=== PATIENT | male | born 1975 ===

== ENCOUNTER 2024-06-01 08:38 | Outpatient (CLI) | payer OTHER ==
[2024-06-01 10:44] LABS: PH,URINE 5.5 (5.0-8.0); URINE APPEARANCE Clear; URINE BILIRRUBIN Negative (NEGATIVE); URINE BLOOD Negative; URINE COLOR Yellow; URINE GLUCOSE Negative (NEGATIVE); URINE KETONE 15 (NEGATIVE); URINE LEUKOCYTE Negative; URINE NITRATE Negative; URINE PROTEIN Negative (NEGATIVE); URINE UROBILINOGEN 0.2 E.U./dl
[2024-06-01 10:44] LABS: HEMATOCRIT 42.8 % (39.0-48.0); HEMOGLOBIN 14.9 g/dL (13-16.00); MEAN CELL VOLUME 87.1 fL (80.0-100.00); MEAN CORPUSCULAR HEMOGLOBIN 30.4 pg (27.00-32.0); MEAN CORPUSCULAR HGB CONC 34.9 g/dl (32.0-36.0); PLATELET COUNT 198 K/uL (150-450); RED BLOOD COUNT 4.92 M/uL (4.00-6.00); RED CELL DISTRIBUTION WIDTH 13.3 % (11.5-14.5)
[2024-06-01 10:50] LABS: URINE BACTERIA 6.2 uL (0.0-1933)
[2024-06-01 10:55] LABS: URINE CAST 0.15 uL (0.0-1.40); URINE EPITHELIAL CELLS 0.9 uL (0.0-38.8); URINE RBC 1.6 uL (0.0-20.8)
[2024-06-01 11:12] LABS: ALBUMIN 4.2 gm/dL (3.4-5.0); BILIRUBIN TOTAL 0.71 mg/dL (0.3-1.2); CALCIUM 9.3 mg/dL (8.5-10.1); CHOL HDL RATIO 3.9 (0-5.0); CREATININE SERUM 1.09 mg/dL (0.70-1.30); GFR 71.9; GLOBULINA 3.3 G/DL (2.4-3.5); POTASSIUM 4.59 mEq/L (3.5-5.1); TOTAL PROTEIN 7.5 gm/dL (6.4-8.2)
== END 2024-06-01 08:39 | disposition home or self-care (01) ==
LOC: LAB 08:38
DX: D64.9 Anemia, unspecified (principal); I10 Essential (primary) hypertension; E78.5 Hyperlipidemia, unspecified; N39.0 Urinary tract infection, site not specified

== ENCOUNTER 2024-06-05 12:30 | Inpatient (IN) | payer OTHER ==
[~2024-06-05] VITALS: Ht 188 cm; Wt 110.2 kg
[2024-06-05 13:45] LABS: INR 1.07; PARTIAL THROMBOPLASTIN TIME 28.8 SECONDS (22.0-34.0)
[2024-06-05 13:49] LABS: PROTHROMBIN TIME 11.6 SECONDS (9.0-11.5)
[2024-06-11] MEDS ORDERED: TRANEXAMIC ACID 100MG/1ML (1000MG) AMPUL IV ONE ×2 (13:50→18:45)
[2024-06-11] MEDS ORDERED: CEFOXITIN SODIUM 2,000 MG VIAL IV ONE (16:45)
[2024-06-11] MEDS ORDERED: ONDANSETRON HCL 2 MG/ML VIAL IV PRN (18:15)
[2024-06-11] MEDS ORDERED: MORPHINE SULFATE 4 MG/ML CARTRIDGE IV PRN (18:15)
[2024-06-11] MEDS ORDERED: OxyCODONE HCL 5 MG TABLET (ROXICODONE) PO PRN (18:15)
[2024-06-11] MEDS ORDERED: SODIUM CHLORIDE 0.45 % 1,000 ML IV SCH (18:15)
[2024-06-11] MEDS ORDERED: KETOROLAC TROMETHAMINE 60 MG VIAL IM ONE (18:45)
[2024-06-11] MEDS ORDERED: LIDOCAINE HCL 1%/EPINEPHRINE 20ML VIAL IJ ONE (18:45)
[2024-06-11] MEDS ORDERED: BUPIVACAINE HCL 30 ML VIAL IJ ONE (18:45)
[2024-06-11 21:20] VITALS: BP 121/59; O2SAT 100
[2024-06-12] MEDS ORDERED: ACETAMINOPHEN 500 MG GEL..CAP PO SCH
[2024-06-12 00:06] VITALS: BP 108/65; O2SAT 97
[2024-06-12] MEDS ORDERED: CEFAZOLIN SODIUM 1,000 MG VIAL IV SCH (01:00)
[2024-06-12] MEDS ORDERED: GABAPENTIN 300 MG CAPSULE PO SCH (01:00)
[2024-06-12 05:42] LABS: HEMATOCRIT 40.3 % (39.0-48.0); HEMOGLOBIN 13.8 g/dL (13-16.00); MEAN CELL VOLUME 88.7 fL (80.0-100.00); MEAN CORPUSCULAR HEMOGLOBIN 30.4 pg (27.00-32.0); MEAN CORPUSCULAR HGB CONC 34.3 g/dl (32.0-36.0); PLATELET COUNT 174 K/uL (150-450); RED BLOOD COUNT 4.54 M/uL (4.00-6.00); RED CELL DISTRIBUTION WIDTH 13.1 % (11.5-14.5)
[2024-06-12] MEDS ORDERED: ELIQUIS2.5 MG PO (07:25)
[2024-06-12] MEDS ORDERED: PERCOCET 5-3251 EACH PO (07:25)
[2024-06-12] MEDS ORDERED: DUI500 PO (07:25)
[2024-06-12 08:00] VITALS: BP 123/62; O2SAT 96
[2024-06-12] MEDS ORDERED: APIXABAN 2.5 MG TABLET PO SCH (09:00)
[2024-06-12] MEDS ORDERED: SENNOSIDES 1 TAB TABLET PO SCH (09:00)
[2024-06-12 12:10] LABS: BILIRUBIN TOTAL 1.54 mg/dL (0.3-1.2); CREATININE SERUM 1.21 mg/dL (0.70-1.30); GFR 63.74; GLOBULINA 3.2 G/DL (2.4-3.5); POTASSIUM 3.57 mEq/L (3.5-5.1); TOTAL PROTEIN 7.2 gm/dL (6.4-8.2)
[2024-06-12 16:00] VITALS: BP 115/72; O2SAT 98
[2024-06-12] MEDS ORDERED: Cyanocobalamin/Mecobalamin 1 TAB.SL SL SCH (17:00)
[2024-06-12] MEDS ORDERED: VITAMIN B COMPLEX 1 EACH PO SCH (17:00)
[2024-06-12 23:53] VITALS: BP 105/62; O2SAT 95
[2024-06-13 06:25] LABS: HEMATOCRIT 38.5 % (39.0-48.0); HEMOGLOBIN 13.2 g/dL (13-16.00); MEAN CELL VOLUME 88.4 fL (80.0-100.00); MEAN CORPUSCULAR HEMOGLOBIN 30.2 pg (27.00-32.0); MEAN CORPUSCULAR HGB CONC 34.2 g/dl (32.0-36.0); PLATELET COUNT 166 K/uL (150-450); RED BLOOD COUNT 4.36 M/uL (4.00-6.00); RED CELL DISTRIBUTION WIDTH 13.2 % (11.5-14.5)
[2024-06-13 08:36] VITALS: BP 109/53; O2SAT 97
[2024-06-13] MEDS ORDERED: IRON FUM,PS/FOLIC ACID/VITC/B3 1 CAP CAPSULE PO SCH (09:00)
[2024-06-13 16:55] VITALS: BP 136/79; O2SAT 100
== END 2024-06-13 19:11 | DRG 470 ==
LOC: O/R 06-11 06:28 → SURH 06-11 12:30 → SURG 06-11 19:02
PROVIDERS: ADMIT Orthopaedic Surgery; ATTEND Orthopaedic Surgery
PROC: 0SR90JA Replacement of Right Hip Joint with Synthetic Substitute, Uncemented, Open Approach (ICD-10-PCS; principal; 2024-06-11 13:30)
DX: M16.11 Unilateral primary osteoarthritis, right hip (principal); D62 Acute posthemorrhagic anemia; M25.751 Osteophyte, right hip; M70.61 Trochanteric bursitis, right hip; I10 Essential (primary) hypertension